=== PATIENT | female | born 1955 | race Caucasian/White ===

== ENCOUNTER 2019-09-21 13:45 | Outpatient (CLI) | payer BC ==
--- NOTE | 2019-09-21 16:01 | Mammography Report ---
Reason: ROUTINE MAMMO Procedure Date: 09/21/2019 Accession Number: [id number] / [id number] Procedure: [facility] - Screening Mammo w/Amarjit CPT Code: Final Report FULL RESULT: BILATERAL DIGITAL SCREENING MAMMOGRAM 3D/2D WITH CAD: 09/21/2019 CLINICAL: Routine screening. No prior exams were available for comparison. The tissue of both breasts is extremely dense, which lowers the sensitivity of mammography. Current study was also evaluated with a Computer Aided Detection (CAD) system. No significant masses, calcifications, or other findings are seen in either breast. IMPRESSION: NEGATIVE There is no mammographic evidence of malignancy. A 1 year screening mammogram is recommended. This exam was interpreted at Station ID: [id number]. NOTE: For mammograms, a report in lay terms will be sent to the patient. Approximately 15% of breast malignancies will not be visualized mammographically. In the management of a palpable breast mass, a negative mammogram must not discourage biopsy of a clinically suspicious lesion. Electronically Signed By: Ayanna allen/natalie:09/21/2019 15:15:31 ACR BI-RADS Category 1: Negative 3341F PARENCHYMAL PATTERN: (VD) - The breast(s) demonstrate(s) extremely dense parenchyma, limiting the sensitivity of mammography. Annual - (ANNUAL) - Recommend routine annual screening mammography. [id number] BI-RADS CATEGORY: (1) - 1
== END 2019-09-21 13:46 | disposition home or self-care (01) ==
LOC: DI 13:45
PROVIDERS: ATTEND Physician Assistant Medical
DX: Z53.9 Procedure and treatment not carried out, unspecified reason (principal)
CPT/HCPCS: 77063; 77067